=== PATIENT | male | born 1970 | race Hispanic/Latino ===

== ENCOUNTER 2016-06-07 11:21 | Emergency (ER) | payer MEDICARE ==
[2016-06-07 11:48] VITALS: BP 109/75
[2016-06-07 12:20] LABS: Bilirubin,Urine NEG (Negative); Blood,Urine NEG (Negative); Ketones,Urine NEG (Negative); Leukocyte Esterase,Urine NEG (Negative); Nitrite,Urine NEG (Negative); Protein,Urine <15 mg/dL mg/dL (Negative); RBC,Urine < 1.0 /HPF (0.0-6.0); Urobilinogen,Urine < 2.0 mg/dL (<2.0); WBC,Urine < 1.0 /HPF (0.0-6.0)
[2016-06-07 12:28] LABS: Basophils % (Auto) 0.4 % (0.0-1.8); Eosinophils % (Auto) 3.1 % (0.0-4.3); Hematocrit 40.9 % (35.5-45.6); Hemoglobin 13.6 gm/dl (11.8-15.2); Mean Corpuscular HGB Conc 33 % (32-34); Mean Corpuscular Hemoglobin 31 pg (28-32); Mean Corpuscular Volume 92 fl (84-94); Platelet Count 208 K/mm3 (140-440); Red Blood Count 4.45 M/mm3 (3.65-5.03); Red Cell Distribution Width 13.7 % (13.2-15.2); White Blood Count 12.4 K/mm3 (4.5-11.0)
--- NOTE | 2016-06-07 12:33 | XRay Report ---
ROUTINE CHEST, TWO VIEWS: HISTORY: Shortness of breath. The trachea, heart, mediastinal contour, lung dailey and bony thorax are unremarkable. IMPRESSION: No acute cardiopulmonary process.
[2016-06-07 13:02] LABS: Anion Gap 15 mmol/L; BUN/Creatinine Ratio 8.75; Blood Urea Nitrogen 7 mg/dL (9-20); Calcium 8.8 mg/dL (8.4-10.2); Carbon Dioxide 28 mmol/L (22-30); Chloride 101.3 mmol/L (98-107); Glucose 87 mg/dL (75-100); Sodium 140 mmol/L (137-145)
== END 2016-06-07 20:03 | disposition left against medical advice (07) ==
LOC: ED 11:21
DX: M54.9 Dorsalgia, unspecified (principal); R60.0 Localized edema; G89.29 Other chronic pain; Z53.21 Procedure and treatment not carried out due to patient leaving prior to being seen by health care provider
CPT/HCPCS: 36415; 71020; 80048; 81001; 83880; 84484; 85025; 93005; 93010

== ENCOUNTER 2017-05-11 19:50 | Observation (INO) | payer MEDICARE ==
[2017-05-11] MEDS ORDERED: ASPIRIN PO ONE (20:16)
[2017-05-11] MEDS ORDERED: NACL 0.9% 500 ML 500 ML IV ONE ×2 (20:28→21:30)
--- NOTE | 2017-05-11 20:34 | Emergency Department Report ---
ED Chest Pain HPI - General Chief Complaint: Chest Pain Stated Complaint: CHEST PAIN Time Seen by Provider: 05/11/17 20:19 Source: patient, EMS Mode of arrival: Stretcher Limitations: No Limitations - History of Present Illness Initial Comments: 46-year-old male with a past medical history of arthritis, depression, anxiety, and seizures presents to the hospital with complaints of chest pain started about 6:30 PM. Symptoms occurred at rest. He has a moderate left-sided chest tightness and pressure. Positive associated diaphoresis and shortness of breath. He denies nausea or vomiting. Chest pain has been intermittent since onset. Patient smokes cigarettes and has a significant family history for CAD. He denies drug use, alcohol use, previous stress test, calf tenderness, or edema. PMD: Dr. Cordova Severity scale (0 -10): 0 - Related Data Previous Rx's Medication Instructions Recorded Last Taken Type Methocarbamol [Robaxin TAB] 750 mg PO Q8H PRN #30 tablet 01/04/14 Unknown Rx Naproxen Sodium (Nf) [Anaprox DS 550 mg PO BID PRN #30 tablet 01/04/14 Unknown Rx TAB] Cetirizine HCl [ZyrTEC] 10 mg PO DAILY #20 capsule 10/23/15 Unknown Rx Clindamycin [Clindamycin CAP] 300 mg PO Q8H #40 cap 10/23/15 Unknown Rx Ondansetron [Zofran TAB] 4 mg PO Q8HR PRN #20 tablet 10/23/15 Unknown Rx Allergies Allergy/AdvReac Type Severity Reaction Status Date / Time Sulfa (Sulfonamide Allergy Anaphylaxis Verified 09/27/13 16:17 Antibiotics) Heart Score - HEART Score History: Moderately suspicious EKG: Normal Age: 45-65 Risk factors: 1-2 risk factors Troponin: < normal limit HEART Score: 3 ED Review of Systems ROS: Stated complaint: CHEST PAIN Other details as noted in HPI Comment: All other systems reviewed and negative Other: Constitutional: No fevers chills Eyes: No eye pain visual changes ENT: No ear pain or throat pain Neck: Denies pain Respiratory: Denies cough wheezing Cardiovascular: As per HPI GI: Denies abdominal pain, nausea, vomiting, diarrhea : Denies dysuria Musculoskeletal: Denies back pain Skin: Denies rash, lesions, erythema Neurologic: Denies headache, numbness, weakness Psychiatric: Denies suicidal ideation, hallucinations ED Past Medical Hx - Past Medical History Previous Medical History?: Yes Hx Arthritis: Yes Hx Seizures: Yes Hx Psychiatric Treatment: Yes (Depression, anxiety) Additional medical history: Epilepsy, Back problems - Surgical History Past Surgical History?: Yes Hx Appendectomy: Yes - Social History Smoking Status: Current Every Day Smoker Substance Use Type: None - Medications Home Medications: Home Medications Medication Instructions Recorded Confirmed Last Taken Type Methocarbamol [Robaxin TAB] 750 mg PO Q8H PRN #30 tablet 01/04/14 Unknown Rx Naproxen Sodium (Nf) [Anaprox DS 550 mg PO BID PRN #30 tablet 01/04/14 Unknown Rx TAB] Cetirizine HCl [ZyrTEC] 10 mg PO DAILY #20 capsule 10/23/15 Unknown Rx Clindamycin [Clindamycin CAP] 300 mg PO Q8H #40 cap 10/23/15 Unknown Rx Ondansetron [Zofran TAB] 4 mg PO Q8HR PRN #20 tablet 10/23/15 Unknown Rx ED Physical Exam - General Limitations: No Limitations - Other Other exam information: General: No limitations, patient is alert in no acute distress Head exam: Atraumatic, normocephalic Eyes exam: Normal appearance ENT: Moist mucous membrane, normal oropharynx Neck exam: Normal inspection, full range of motion, no meningismus nontender Respiratory exam: Clear to auscultation bilateral, no wheezes, rales, crackles Cardiovascular: Normal rate and rhythm, normal heart sounds. Chest wall nontender Abdomen: Soft, nondistended, and nontender, with normal bowel sounds, no rebound, or guarding Extremity: Full range of motion normal inspection no deformity, no calf tenderness or edema Back: Normal Inspection, full range of motion, no tenderness Neurologic: Alert, oriented x3, cranial nerves intact, no motor or sensory deficit Psychiatric: normal affect, normal mood Skin: Warm, dry, intact ED Course Vital Signs 05/11/17 05/11/17 05/11/17 20:00 20:08 21:11 Temperature 98.8 F 98.8 F Pulse Rate 54 L 54 L Respiratory 17 17 17 Rate Blood Pressure 93/48 Blood Pressure 93/48 [Left] O2 Sat by Pulse 98 97 98 Oximetry ED Medical Decision Making - Lab Data Result diagrams: 05/11/17 20:28 05/11/17 20:28 Lab Results 05/11/17 05/11/17 05/11/17 Range/Units 20:27 20:27 20:28 WBC 8.9 (4.5-11.0) K/mm3 RBC 4.33 (3.65-5.03) M/mm3 Hgb 13.9 (11.8-15.2) gm/dl Hct 40.2 (35.5-45.6) % MCV 93 (84-94) fl MCH 32 (28-32) pg MCHC 35 H (32-34) % RDW 13.7 (13.2-15.2) % Plt Count 175 (140-440) K/mm3 Lymph % (Auto) 48.9 H (13.4-35.0) % [place] % (Auto) 12.1 H (0.0-7.3) % Eos % (Auto) 2.8 (0.0-4.3) % Baso % (Auto) 0.9 (0.0-1.8) % Lymph # 4.4 (1.2-5.4) K/mm3 [place] # 1.1 H (0.0-0.8) K/mm3 Eos # 0.3 (0.0-0.4) K/mm3 Baso # 0.1 (0.0-0.1) K/mm3 Seg Neutrophils % 35.3 L (40.0-70.0) % Seg Neutrophils # 3.2 (1.8-7.7) K/mm3 PT 12.9 (12.2-14.9) Sec. INR 0.93 (0.87-1.13) Sodium (137-145) mmol/L Potassium (3.6-5.0) mmol/L Chloride (98-107) mmol/L Carbon Dioxide (22-30) mmol/L Anion Gap mmol/L BUN (9-20) mg/dL Creatinine (0.8-1.5) mg/dL Estimated GFR ml/min BUN/Creatinine Ratio % Glucose (75-100) mg/dL Calcium (8.4-10.2) mg/dL Troponin T (0.00-0.029) ng/mL Triglycerides 162 H (2-149) mg/dL Cholesterol 113 (50-199) mg/dL LDL Cholesterol Direct 50 (50-130) mg/dL HDL Cholesterol 31 L (40-59) mg/dL Cholesterol/HDL Ratio 3.64 % 05/11/17 Range/Units 20:28 WBC (4.5-11.0) K/mm3 RBC (3.65-5.03) M/mm3 Hgb (11.8-15.2) gm/dl Hct (35.5-45.6) % MCV (84-94) fl MCH (28-32) pg MCHC (32-34) % RDW (13.2-15.2) % Plt Count (140-440) K/mm3 Lymph % (Auto) (13.4-35.0) % [place] % (Auto) (0.0-7.3) % Eos % (Auto) (0.0-4.3) % Baso % (Auto) (0.0-1.8) % Lymph # (1.2-5.4) K/mm3 [place] # (0.0-0.8) K/mm3 Eos # (0.0-0.4) K/mm3 Baso # (0.0-0.1) K/mm3 Seg Neutrophils % (40.0-70.0) % Seg Neutrophils # (1.8-7.7) K/mm3 PT (12.2-14.9) Sec. INR (0.87-1.13) Sodium 139 (137-145) mmol/L Potassium 4.2 (3.6-5.0) mmol/L Chloride 104.1 (98-107) mmol/L Carbon Dioxide 28 (22-30) mmol/L Anion Gap 11 mmol/L BUN 9 (9-20) mg/dL Creatinine 0.9 (0.8-1.5) mg/dL Estimated GFR > 60 ml/min BUN/Creatinine Ratio 10 % Glucose 99 (75-100) mg/dL Calcium 8.1 L (8.4-10.2) mg/dL Troponin T < 0.010 (0.00-0.029) ng/mL Triglycerides (2-149) mg/dL Cholesterol (50-199) mg/dL LDL Cholesterol Direct (50-130) mg/dL HDL Cholesterol (40-59) mg/dL Cholesterol/HDL Ratio % - EKG Data -: EKG Interpreted by Mt EKG shows normal: sinus rhythm, axis (QRS 40), QRS complexes (102), ST-T waves ( early re-pole) Rate: bradycardia (51) - EKG Data When compared to previous EKG there are: no significant change - Radiology Data Radiology results: report reviewed read by radiologist cxr: No acute findings - Medical Decision Making cp will admit for stress test/repeat enzymes no stemi ASA given in ed pain decreasing pt has asymptomatic hypotension and bradycardia cause unclear at this time IVF in progress - Differential Diagnosis IL, atypical pain, unstable angina, costochondritis, PE Critical Care Time: No Critical care attestation.: If time is entered above; I have spent that time in minutes in the direct care of this critically ill patient, excluding procedure time. ED Disposition Clinical Impression: Chest pain, Smoker Disposition: OP ADMIT IP TO THIS HOSP Is pt being admited?: Yes Condition: Stable Time of Disposition: 21:20 (Dr Garcia/hosp)
[2017-05-11 20:38] LABS: Basophils # (Auto) 0.1 K/mm3 (0.0-0.1); Basophils % (Auto) 0.9 % (0.0-1.8); Eosinophils # (Auto) 0.3 K/mm3 (0.0-0.4); Eosinophils % (Auto) 2.8 % (0.0-4.3); Hematocrit 40.2 % (35.5-45.6); Hemoglobin 13.9 gm/dl (11.8-15.2); Lymphocytes # (Auto) 4.4 K/mm3 (1.2-5.4); Lymphocytes % (Auto) 48.9 % (13.4-35.0); Mean Corpuscular HGB Conc 35 % (32-34); Mean Corpuscular Hemoglobin 32 pg (28-32); Mean Corpuscular Volume 93 fl (84-94); Monocytes # (Auto) 1.1 K/mm3 (0.0-0.8); Monocytes % (Auto) 12.1 % (0.0-7.3); Platelet Count 175 K/mm3 (140-440); Red Blood Count 4.33 M/mm3 (3.65-5.03); Red Cell Distribution Width 13.7 % (13.2-15.2)
[2017-05-11 20:52] LABS: INR 0.93 (0.87-1.13)
[2017-05-11 21:00] LABS: BUN/Creatinine Ratio 10; Blood Urea Nitrogen 9 mg/dL (9-20); Calcium 8.1 mg/dL (8.4-10.2); Hemolysis Index 8
[2017-05-11 21:04] LABS: Chol/HDL Ratio 3.64 %
--- NOTE | 2017-05-11 22:03 | XRay Report ---
FINAL REPORT PROCEDURE: Chest. TECHNIQUE: AP and lateral views. HISTORY: Chest pain. COMPARISON: No prior studies are available for comparison. FINDINGS: The heart and mediastinum appear normal. The lungs are clear and well expanded. There are no pleural effusions. The soft tissues and regional skeleton are unremarkable. IMPRESSION: No evidence of acute disease.
[2017-05-11] MEDS ORDERED: HABITROL TD ONE (22:25)
[2017-05-11] MEDS ORDERED: DULCOLAX PR PRN (22:26)
[2017-05-11] MEDS ORDERED: MILK OF MAGNESIA PO PRN (22:26)
[2017-05-11] MEDS ORDERED: ZOFRAN IV PRN (22:26)
[2017-05-11] MEDS ORDERED: TYLENOL PO PRN (22:26)
--- NOTE | 2017-05-11 22:28 | History and Physical Report ---
History of Present Illness Date of examination: 05/11/17 History of present illness: 46-year-old man with a history of anxiety, depression, seizure was brought to the emergency room with complaints of chest pain in the left substernal chest which he describes a tightness, constant, intensity 6/10, no radiation, cannot identify exacerbating or relieving factors. He denies nausea vomiting, palpitation. Admits to diaphoresis, shortness of breath. Review Of Systems: Constitutional: no weight loss Ears, eyes, nose, mouth and throat: no nasal congestion, no nasal discharge, no sinus pressure, blurry vision, diplopia Neck: No neck pain or rigidity. Cardiovascular: orthopnea, palpitations Respiratory: No cough Gastrointestinal: abdominal pain, hematochezia Genitourinary : no dysuria, frequency , hematuria Musculoskeletal: no muscle ache Integumentary: no rash, no pruritis Neurological: no parathesias, focal weakness Endocrine: no cold or heat intolerance, no polyuria or polydipsia Hematologic/Lymphatic: no easy bruising, no easy bleeding, no gland swelling Allergic/Immunologic: no urticaria, no angioedema. PAST MEDICAL HISTORY:anxiety, deprerssion, seizure PAST SURGICAL HISTORY: appendectomy FAMILY HISTORY: Hypertension SOCIAL HISTORY: Denies alcohol, drugs, smoke 1/2 pack a day Medications and Allergies Allergies Allergy/AdvReac Type Severity Reaction Status Date / Time Sulfa (Sulfonamide Allergy Anaphylaxis Verified 09/27/13 16:17 Antibiotics) Home Medications Medication Instructions Recorded Confirmed Last Taken Type Methocarbamol [Robaxin TAB] 750 mg PO Q8H PRN #30 tablet 01/04/14 Unknown Rx Naproxen Sodium (Nf) [Anaprox DS 550 mg PO BID PRN #30 tablet 01/04/14 Unknown Rx TAB] Cetirizine HCl [ZyrTEC] 10 mg PO DAILY #20 capsule 10/23/15 Unknown Rx Clindamycin [Clindamycin CAP] 300 mg PO Q8H #40 cap 10/23/15 Unknown Rx Ondansetron [Zofran TAB] 4 mg PO Q8HR PRN #20 tablet 10/23/15 Unknown Rx Active Meds: Active Medications Nicotine (Habitrol) 21 mg TD ONCE ONE Stop: 05/11/17 22:26 Exam - Physical Exam Narrative exam: Gen. appearance: Patient lying in bed in no acute distress HEENT: Normocephalic/atraumatic, pupils equal round reactive to light, extra alkaline movement intact, no scleral icterus, no JVD or thyromegaly or nodule, neck is supple, mucous membrane moist, no erythema or exudate Heart: S1-S2, regular rate and rhythm Lungs: CTA bilateral breathing comfortable Abdomen: Positive bowel sounds, nontender, nondistended, no organomegaly Extremities: No edema, cyanosis, clubbing Neuro:: Oriented 3 , cranial nerves II-12 intact, speech, motor intact Skin: No rash, nodules, warm dry - Constitutional Vitals: Temp Pulse Resp BP Pulse Ox 98.8 F 54 L 17 93/48 98 05/11/17 20:08 05/11/17 20:08 05/11/17 21:11 05/11/17 20:08 05/11/17 21:11 Results - Labs CBC & Chem 7: 05/12/17 05:10 05/11/17 20:28 Labs: Abnormal lab results 05/11/17 05/11/17 05/11/17 Range/Units 20:27 20:28 20:28 MCHC 35 H (32-34) % Lymph % (Auto) 48.9 H (13.4-35.0) % [place] % (Auto) 12.1 H (0.0-7.3) % [place] # 1.1 H (0.0-0.8) K/mm3 Seg Neutrophils % 35.3 L (40.0-70.0) % Calcium 8.1 L (8.4-10.2) mg/dL Triglycerides 162 H (2-149) mg/dL HDL Cholesterol 31 L (40-59) mg/dL - Imaging and Cardiology EKG: image reviewed Chest x-ray: image reviewed Assessment and Plan Assessment Chest Pain Anxiety Depression Seizure Plan Admit to medicine Check cardiac enzymes, stress test start percocet, DVT prophalaxis Continue outpatient medications
[2017-05-11] MEDS ORDERED: ATIVAN IV PRN (22:45)
[2017-05-11] MEDS ORDERED: NACL 0.9% 1000 ML 1,000 ML IV SCH (23:00)
[2017-05-11] MEDS ORDERED: PERCOCET 5/325 ONE (23:15)
[2017-05-11] MEDS: PERCOCET 5/325 PO PRN (23:19)
[2017-05-12 00:29] LABS: Creatine Kinase MB 1.4 ng/mL (0.0-4.0)
[2017-05-12 05:56] LABS: Basophils # (Auto) 0.1 K/mm3 (0.0-0.1); Basophils % (Auto) 0.6 % (0.0-1.8); Eosinophils # (Auto) 0.2 K/mm3 (0.0-0.4); Eosinophils % (Auto) 2.5 % (0.0-4.3); Hematocrit 40.4 % (35.5-45.6); Hemoglobin 13.6 gm/dl (11.8-15.2); Lymphocytes # (Auto) 4.1 K/mm3 (1.2-5.4); Lymphocytes % (Auto) 45.3 % (13.4-35.0); Mean Corpuscular HGB Conc 34 % (32-34); Mean Corpuscular Hemoglobin 32 pg (28-32); Mean Corpuscular Volume 94 fl (84-94); Monocytes # (Auto) 0.9 K/mm3 (0.0-0.8); Monocytes % (Auto) 10.2 % (0.0-7.3); Platelet Count 167 K/mm3 (140-440); Red Blood Count 4.31 M/mm3 (3.65-5.03); Red Cell Distribution Width 13.5 % (13.2-15.2)
[2017-05-12 06:18] LABS: Creatine Kinase MB 1.3 ng/mL (0.0-4.0)
[2017-05-12 06:21] LABS: BUN/Creatinine Ratio 13; Blood Urea Nitrogen 10 mg/dL (9-20); Calcium 7.8 mg/dL (8.4-10.2); Hemolysis Index 4
[2017-05-12] MEDS ORDERED: LOVENOX SUB-Q SCH (10:00)
[2017-05-12] MEDS ORDERED: DOBUTAMINE Stress 100 MG in D5W 75 ML IV SCH (11:00)
[2017-05-12] MEDS: LOVENOX SUB-Q SCH (12:44)
[2017-05-12] MEDS ORDERED: ACETAMINOPHEN PO SCH (12:45)
[2017-05-12] MEDS: PROTONIX PO SCH (12:45)
[2017-05-12] MEDS ORDERED: NON-FORMULARY (Tizanidine Hcl [Zanaflex] 4 MG) PO SCH (12:45)
[2017-05-12] MEDS ORDERED: HYDROCODONE PO SCH (12:45)
[2017-05-12] MEDS ORDERED: NORCO 7.5/325 PO PRN (12:48)
--- NOTE | 2017-05-12 13:31 | Consultation ---
History of Present Illness Consult date: 05/12/17 Requesting physician: LUÍS SAMANO Consult reason: bradycardia, chest pain History of present illness: The patient is a 46 year old male with a history of chronic back pain, grand mal seizures, depression, anxiety, tobacco abuse who presented with complaints of intermittent substernal chest pain with radiation to his left arm that started yesterday evening while at rest. Described as tightness and pressure. Associated with shortness of breath and diaphoresis. Denies nausea or vomiting. Troponin negative x 4. BNP 855. CXR unremarkable. Echo showed EF 50-55%. Stress test was ordered for this morning but patient is unable to walk due to chronic back pain. Lexiscan contraindicated due to h/o grand mal seizures. Dobutamine stress test attempted but BP got too high before adequate HR achieved. Both mother and father with a history of CAD. Past History Past Medical History: arthritis, seizures, other (chronic back pain, depression , anxiety) Past Surgical History: appendectomy Social history: smoking. denies: alcohol abuse, prescription drug abuse, IV drug use Family history: CAD (mother and father) Medications and Allergies Allergies Allergy/AdvReac Type Severity Reaction Status Date / Time Sulfa (Sulfonamide Allergy Anaphylaxis Verified 09/27/13 16:17 Antibiotics) Home Medications Medication Instructions Recorded Confirmed Last Taken Type Diazepam [Valium] 5 mg PO BID 05/12/17 05/12/17 Unknown History Hydrocodon-Acetamin 7.5-325/15 7.5 mg PO PRN 05/12/17 05/12/17 Unknown History Tizanidine HCl [Zanaflex] 4 mg PO DAILY 05/12/17 05/12/17 Unknown History levETIRAcetam [Keppra] 750 mg PO BID 05/12/17 05/12/17 Unknown History Active Meds: Active Medications Acetaminophen (Tylenol) 650 mg PO Q4H PRN PRN Reason: Pain MILD(1-3)/Fever >100.5/WETZEL Acetaminophen/Hydrocodone Bitart ([place] 7.5/325) 1 each PO Q4H PRN PRN Reason: Pain, Moderate (4-6) Bisacodyl (Dulcolax) 10 mg [place] QDAY PRN PRN Reason: Constipation unrelieved by MOM Diazepam (Valium) 5 mg PO BID SARAH Enoxaparin Sodium (Lovenox) 40 mg SUB-Q QDAY@1000 [facility] Last Admin: 05/12/17 12:44 Dose: 40 mg Sodium Chloride (Nacl 0.9% 1000 Ml) 1,000 mls @ 100 mls/hr IV DIRECT [facility] Levetiracetam (Keppra) 750 mg PO BID [facility] Lorazepam (Ativan) 1 mg IV Q4H PRN PRN Reason: Seizures Magnesium Hydroxide (Milk Of Magnesia) 30 ml PO Q4H PRN PRN Reason: Constipation Ondansetron HCl (Zofran) 4 mg IV Q8H PRN PRN Reason: N/V unrelieved by Reglan Oxycodone/Acetaminophen (Percocet 5/325) 1 tab PO Q4H PRN PRN Reason: Pain, Moderate (4-6) Last Admin: 05/11/17 23:19 Dose: 1 tab Pantoprazole Sodium (Protonix) 40 mg PO QDAY [facility] Last Admin: 05/12/17 12:45 Dose: 40 mg Tizanidine HCl (Zanaflex) 4 mg PO QDAY [facility] Review of Systems Constitutional: no fever, no chills Ears, nose, mouth and throat: no nasal congestion, no nasal discharge, no sinus pressure Cardiovascular: chest pain, shortness of breath, no palpitations Respiratory: shortness of breath, no cough, no congestion, no wheezing Gastrointestinal: no abdominal pain, no nausea, no vomiting, no diarrhea Genitourinary Male: no dysuria, no hematuria Musculoskeletal: no neck stiffness, no neck pain, no myalgias Integumentary: no rash, no pruritis Neurological: no parathesias, no numbness, no tingling, no headaches Endocrine: no cold intolerance, no heat intolerance Hematologic/Lymphatic: no easy bruising, no easy bleeding Allergic/Immunologic: no urticaria, no wheezing Physical Examination Vital Signs Temp Pulse Resp BP Pulse Ox 98.8 F 54 L 17 93/48 98 05/11/17 20:00 05/11/17 20:00 05/11/17 20:00 05/11/17 20:00 05/11/17 20:00 General appearance: no acute distress HEENT: Positive: Normocephaly, Mucus Membranes Moist Neck: Positive: neck supple, trachea midline Cardiac: Positive: Reg Rate and Rhythm, S1/S2 Lungs: Positive: clear to auscultation Neuro: Positive: Grossly Intact Abdomen: Positive: Soft, Active Bowel Sounds. Negative: Tender Skin: Positive: Clear. Negative: Rash Extremities: Present: normal. Absent: edema Results 05/12/17 05:10 05/12/17 05:10 Cardiac Enzymes 05/11/17 05/12/17 Range/Units 23:42 05:10 CK-MB (CK-2) 1.4 1.3 (0.0-4.0) ng/mL Coagulation 05/11/17 Range/Units 20:27 PT 12.9 (12.2-14.9) Sec. INR 0.93 (0.87-1.13) Lipids 05/11/17 Range/Units 20:27 Triglycerides 162 H (2-149) mg/dL Cholesterol 113 (50-199) mg/dL HDL Cholesterol 31 L (40-59) mg/dL Cholesterol/HDL Ratio 3.64 % CBC 05/11/17 05/12/17 Range/Units 20:28 05:10 WBC 8.9 9.0 (4.5-11.0) K/mm3 RBC 4.33 4.31 (3.65-5.03) M/mm3 Hgb 13.9 13.6 (11.8-15.2) gm/dl Hct 40.2 40.4 (35.5-45.6) % Plt Count 175 167 (140-440) K/mm3 Lymph # 4.4 4.1 (1.2-5.4) K/mm3 [place] # 1.1 H 0.9 H (0.0-0.8) K/mm3 Eos # 0.3 0.2 (0.0-0.4) K/mm3 Baso # 0.1 0.1 (0.0-0.1) K/mm3 Comprehensive Metabolic Panel 05/11/17 05/12/17 Range/Units 20:28 05:10 Sodium 139 144 (137-145) mmol/L Potassium 4.2 4.8 (3.6-5.0) mmol/L Chloride 104.1 104.5 (98-107) mmol/L Carbon Dioxide 28 28 (22-30) mmol/L BUN 9 10 (9-20) mg/dL Creatinine 0.9 0.8 (0.8-1.5) mg/dL Glucose 99 91 (75-100) mg/dL Calcium 8.1 L 7.8 L (8.4-10.2) mg/dL - Imaging and Cardiology Echo: report reviewed (Echo: EF 50-55%) EKG: image reviewed EKG interpretations - Telemetry EKG Rhythm: Sinus Rhythm - EKG Sinus rhythms and dysrhythmias: sinus bradycardia Assessment and Plan Assessment: Chest pain Troponin negative x 4 No acute EKG changes Echo: EF 50-55% [facility] in am for definitive diagnosis Asymptomatic sinus bradycardia Avoid AV niko blocking agents Check TSH/free T4 Continue to observe on the monitor Chronic back pain Depression Anxiety H/o grand mal seizures Tobacco abuse Family h/o CAD Plan: Stress test was ordered for this morning but patient is unable to walk due to chronic back pain. Lexiscan contraindicated due to h/o grand mal seizures. Dobutamine stress test attempted but BP got too high before adequate HR achieved. Given continued chest pain, will proceed with [facility] in am for definitive diagnosis. Risks, benefits and alternatives were discussed with the patient and he agrees to proceed. The patient has been seen in conjunction with Dr. Richmond who agrees with the assessment and plan of care.
[2017-05-12] MEDS: VALIUM PO SCH ×2 (14:19→22:22)
[2017-05-12] MEDS: KEPPRA PO SCH ×2 (14:19→22:21)
--- NOTE | 2017-05-12 15:05 | Progress Note ---
Assessment and Plan // Chest pain - Troponin negative x 4, No acute EKG changes, Echo: EF 50-55% - Stress test was ordered for this morning but patient is unable to walk due to chronic back pain. Lexiscan contraindicated due to h/o grand mal seizures. Dobutamine stress test attempted but BP got too high before adequate HR achieved. Given continued chest pain, cardiology planned for [facility] in am for definitive diagnosis. // Asymptomatic sinus bradycardia - Avoid AV niko blocking agents - Check TSH/free T4 - Continue to observe on the monitor // Chronic back pain - lortab as needed // Depression and anxiety - resume home meds (Valium) // H/o grand mal seizures - cont keppra 750 BID // Tobacco abuse - counselled for cessation General: Diet: cardiac DVT prophylaxis: lovenox GI prophylaxis: PPI Functional status: ambulatory Brief history: 46-year-old man with a history of anxiety, depression, seizure was brought to the emergency room with complaints of chest pain in the left substernal chest Radiological test: cxr - no infiltrates 2d echo - preserved EF Hospitalist Physical exam: GENERAL: well-developed and well-nourished male lying on bed appeared to be in no discomfort. HEENT: Normocephalic. Atraumatic. No conjunctival congestion or icterus. Patient has moist mucous membranes. NECK: Supple. Trachea midline. CHEST/LUNGS: Clear to auscultated bilaterally, breathing nonlabored. No wheezes crackles or rhonchi. HEART/CARDIOVASCULAR: Regular in rate and rhythm. S1 and S2 positive. ABDOMEN: Abdomen is soft, nontender. Patient has normal bowel sounds. SKIN: There is no rash. Warm and dry. NEURO: No focal motor deficit. Follows command. MUSCULOSKELETAL: No joint effusion or tenderness. EXTRIMITY: No edema, no cyanosis or clubbing. PSYCH: Cooperative. Subjective Date of service: 05/12/17 Interval history: Pt seen and examined c/o intermittent chest pain and no chest pain now Discussed with family at bedside Objective - Constitutional Vitals: Vital Signs - 12hr 05/12/17 05/12/17 05/12/17 05:02 06:44 07:46 Temperature 98.1 F 97.9 F Pulse Rate 46 L 51 L Respiratory 20 18 20 Rate Blood Pressure 108/66 95/53 O2 Sat by Pulse 97 98 96 Oximetry 05/12/17 11:46 Temperature 97.8 F Pulse Rate 50 L Respiratory 20 Rate Blood Pressure 130/79 O2 Sat by Pulse 98 Oximetry - Labs CBC & Chem 7: 05/13/17 05:02 05/13/17 05:02 Labs: Abnormal lab results 05/11/17 05/11/17 05/11/17 Range/Units 20:27 20:28 20:28 MCHC 35 H (32-34) % Lymph % (Auto) 48.9 H (13.4-35.0) % [place] % (Auto) 12.1 H (0.0-7.3) % [place] # 1.1 H (0.0-0.8) K/mm3 Seg Neutrophils % 35.3 L (40.0-70.0) % Calcium 8.1 L (8.4-10.2) mg/dL Triglycerides 162 H (2-149) mg/dL HDL Cholesterol 31 L (40-59) mg/dL 05/12/17 05/12/17 Range/Units 05:10 05:10 MCHC (32-34) % Lymph % (Auto) 45.3 H (13.4-35.0) % [place] % (Auto) 10.2 H (0.0-7.3) % [place] # 0.9 H (0.0-0.8) K/mm3 Seg Neutrophils % (40.0-70.0) % Calcium 7.8 L (8.4-10.2) mg/dL Triglycerides (2-149) mg/dL HDL Cholesterol (40-59) mg/dL
[2017-05-12] MEDS: ZANAFLEX PO SCH (15:30)
[2017-05-12] MEDS ORDERED: NACL 0.9% 500 ML 500 ML IV SCH (16:00)
[2017-05-12] MEDS: PERCOCET 5/325 PO PRN (20:22)
[2017-05-13 05:26] LABS: Hematocrit 45.2 % (35.5-45.6); Hemoglobin 15.3 gm/dl (11.8-15.2); Mean Corpuscular HGB Conc 34 % (32-34); Mean Corpuscular Hemoglobin 32 pg (28-32); Mean Corpuscular Volume 93 fl (84-94); Platelet Count 179 K/mm3 (140-440); Red Blood Count 4.84 M/mm3 (3.65-5.03); Red Cell Distribution Width 13.4 % (13.2-15.2)
[2017-05-13 05:41] LABS: INR 0.89 (0.87-1.13); Partial Thromboplastin Time 30.5 Sec. (24.2-36.6)
[2017-05-13 05:42] LABS: BUN/Creatinine Ratio 14; Blood Urea Nitrogen 10 mg/dL (9-20); Calcium 8.6 mg/dL (8.4-10.2); Hemolysis Index 7
[2017-05-13] MEDS: PERCOCET 5/325 PO PRN (05:53)
[2017-05-13 08:04] LABS: Band Neutrophils # (Manual) 0.1 K/mm3; Basophils % (Manual) 0 % (0.0-1.8); Total Cells Counted 100
[2017-05-13 08:05] LABS: RBC Morphology Normal
[2017-05-13] MEDS ORDERED: ECOTRIN PO ONE (08:30)
[2017-05-13] MEDS: HEPARIN 10,000 UNITS/10 ML ONE ×2 (08:39→08:54)
[2017-05-13] MEDS: VERSED ONE ×2 (08:39→08:53)
[2017-05-13] MEDS: CALAN ONE ×2 (08:39→08:54)
[2017-05-13] MEDS: XYLOCAINE 2% INFILTRATI ONE ×2 (08:39→08:53)
[2017-05-13] MEDS: SUBLIMAZE ONE ×2 (08:39→08:53)
[2017-05-13] MEDS: NITROGLYCERIN SYRINGE 3 ML ONE ×2 (08:40→08:54)
[2017-05-13] MEDS: HEPARIN/NS 5000 UNIT/500ML(CATH LAB) 1,000 ML IR ONE ×2 (08:40→08:50)
--- NOTE | 2017-05-13 09:31 | Cardiac Catherization Report ---
CARDIAC CATHETERIZATION REFERRING PHYSICIAN: Mary Garcia MD INDICATION FOR PROCEDURE: The patient is a pleasant 46-year-old gentleman with a strong family history of premature heart disease, admission with chest pain, a nondiagnostic dobutamine stress test, referred for left heart catheterization. Risks, benefits, and potential alternatives explained at length prior to informed consent. PROCEDURE IN DETAIL: The patient was brought to the lab technician in a postabsorptive state, prepped and draped in sterile fashion. Best's test in right hand was normal. A 2 mL of 2% lidocaine used to anesthetize the right wrist. A standard 6-Bengali hydrophilic sheath used to cannulate the right radial artery via modified Seldinger technique. All exchanges performed to exchange a J-tip guidewire. JL3.5 catheter used to engage the left main. No dampening or ventricularization. Cineangiography performed in all projections. JR4 catheter was used to cross the aortic valve under fluoroscopic guidance. Left ventriculography performed in 30 PALMA and 30 MONEGASQUE projections via hand injections, catheter flushed. Manual pullback performed with continuous pressure monitoring. Catheter used to engage the right coronary. No dampening or ventricularization. Cineangiography performed in all projections. Next, due to persistent chest pain, normal coronaries, we chose to proceed with a root aortogram. Pigtail catheter used in the MONEGASQUE projection with a power injector. Root aortogram performed. Catheter removed from the body of wire, sheath removed. Manual pressure used to achieve hemostasis. DATA: Aortic pressure is 130/80, LV pressure is 130, LVEDP of 20 mmHg. Left ventriculography revealed normal left ventricular systolic performance, estimated ejection fraction of 50-55%. No evidence of stenosis. CORONARY ANATOMY: This is a right dominant system. Right coronary is a moderate sized vessel, courses AV groove, distally bifurcates in the posterior descending, posterolateral branches. No discrete stenosis identified. Left main without significant disease, short, bifurcates in left anterior descending and left circumflex. Left circumflex a moderate sized vessel, courses AV groove. No significant disease. LAD is a moderate sized vessel, courses anterior intergroove, wraps around the apex, no significant disease. Root aortography reveals normal contour, likely normal diameter. Normal great vessel anatomy. No evidence of dissection, penetrating aortic ulcer, or aortic insufficiency. CONCLUSIONS: 1. No angiographic evidence of significant epicardial coronary artery disease in this right dominant system. 2. Normal left ventricular systolic performance. 3. No evidence of aortic stenosis. 4. Root aortogram appears grossly normal without evidence of dissection, penetrating aortic ulcer, or aortic insufficiency. 5. High normal LVEDP. At this point, continue medical management, risk factor modification. Results of procedure explained to the patient and family. All questions and concerns were addressed. Standard radial care. ADDENDUM: Moderate sedation was employed, was directly monitored by myself with the administration of Versed and fentanyl. Start time was 08:45, end time 09:15. JOB# [id number] SBM/NTS
--- NOTE | 2017-05-13 10:19 | Treadmill Report ---
DOBUTAMINE STRESS TEST REFERRING PHYSICIAN: Delaney Garcia MD SUPERVISING PHYSICIAN: Amita Richmond MD PROTOCOL: The patient was brought to the stress lab in a postabsorptive state. Unable to perform a treadmill due to history of seizures, Lexiscan was not used and thus a dobutamine stress test was performed. Baseline heart rate was noted to be 50. Normal EKG at baseline. Dobutamine infusion was started per protocol. Eventually, heart rate rebekah to 75 beats per minute, but blood pressure rebekah over 200 systolic and thus the test was stopped prematurely. The patient had no chest pain, arrhythmias, or ST changes. CONCLUSIONS: 1. Nondiagnostic dobutamine stress test due to inability to achieve target heart rate due to elevated blood pressure. 2. No evidence of chest pain, arrhythmia, or diagnostic ST changes during this limited test. Recommend further testing for ischemic workup. [facility]# [id number] SBChance/AN
--- NOTE | 2017-05-13 10:21 | Progress Note ---
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 Currently stable cardiac status. Nothing further to add from cardiac perspective. Pt may discharge home today from cardiology standpoint following completion of post-cath order set. Recommend follow up in our office with Meagan Auguste NP, within 1-2 weeks of hospital discharge ([phone]). The patient has been seen in conjunction with Dr. Richmond who agrees with the assessment and plan of care. Subjective Date of service: 05/13/17 Principal diagnosis: chest pain Interval history: pt for [facility] this AM. no current cardiac complaints. Objective Last Vital Signs Temp 97.7 F 05/13/17 04:52 Pulse 52 L 05/13/17 10:01 Resp 20 05/13/17 04:52 BP 118/79 05/13/17 10:01 Pulse Ox 99 05/13/17 10:01 - Physical Examination General: No Apparent Distress HEENT: Positive: Normocephaly, Mucus Membranes Moist Neck: Positive: neck supple, trachea midline Cardiac: Positive: Regular Rhythm, S1/S2, Bradycardia Lungs: Positive: clear to auscultation Neuro: Positive: Grossly Intact Abdomen: Positive: Soft, Active Bowel Sounds. Negative: Tender Skin: Positive: Clear. Negative: Rash Extremities: Present: normal. Absent: edema - Labs and Meds Coagulation 05/13/17 Range/Units 05:02 PT 12.5 (12.2-14.9) Sec. INR 0.89 (0.87-1.13) APTT 30.5 (24.2-36.6) Sec. CBC 05/13/17 Range/Units 05:02 WBC 7.2 (4.5-11.0) K/mm3 RBC 4.84 (3.65-5.03) M/mm3 Hgb 15.3 H (11.8-15.2) gm/dl Hct 45.2 (35.5-45.6) % Plt Count 179 (140-440) K/mm3 Comprehensive Metabolic Panel 02/22/18 Range/Units 05:02 Sodium 146 H (137-145) mmol/L Potassium 4.9 (3.6-5.0) mmol/L Chloride 107.4 H (98-107) mmol/L Carbon Dioxide 29 (22-30) mmol/L BUN 10 (9-20) mg/dL Creatinine 0.7 L (0.8-1.5) mg/dL Glucose 97 (75-100) mg/dL Calcium 8.6 (8.4-10.2) mg/dL - Imaging and Cardiology EKG: image reviewed Echo: report reviewed (Echo: EF 50-55%) - Telemetry EKG Rhythm: Sinus Bradycardia - EKG Sinus rhythms and dysrhythmias: sinus bradycardia
[2017-05-13] MEDS: LOVENOX SUB-Q SCH (10:43)
[2017-05-13] MEDS: VALIUM PO SCH (10:44)
[2017-05-13] MEDS: PROTONIX PO SCH (10:44)
[2017-05-13] MEDS: ZANAFLEX PO SCH (10:44)
[2017-05-13] MEDS: KEPPRA PO SCH (10:44)
--- NOTE | 2017-05-13 12:07 | Discharge Summary ---
Providers - Providers Date of Admission: 05/11/17 22:26 Date of discharge: 05/13/17 Attending physician: LUÍS SAMANO 05/12/17 07:28 Consult to Physician [CONS] Routine Consulting Provider: VEGA VAIL Reason For Exam: bradycardia Place consult to:: Dr. Vail Notified:: Omayra ROLON Was contact made?: Yes If yes, spoke with:: Meagan Auguste Time called:: 10:49 05/13/17 10:20 Consult to Cardiac Rehabilitation [CONS] Routine Reason For Exam: Cardiac Rehab Evaluation Primary care physician: WILVER CLOUD Hospitalization Condition: Stable Hospital course: Brief history: 46-year-old man with a history of anxiety, depression, seizure was brought to the emergency room with complaints of chest pain in the left substernal chest // Chest pain, likely musculoskeletal - Troponin negative x 4, No acute EKG changes, Echo: EF 50-55% - Stress test was ordered but patient is unable to walk due to chronic back pain. Lexiscan contraindicated due to h/o grand mal seizures. Dobutamine stress test attempted but BP got too high before adequate HR achieved. Given continued chest pain, cardiology planned for [facility] for definitive diagnosis and that showed normal coronaries. He will f/u in the cardiology office in one week. 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 HEENT: Normocephalic. Atraumatic. No conjunctival congestion or icterus. Patient has moist mucous membranes. NECK: Supple. Trachea midline. CHEST/LUNGS: Clear to auscultated bilaterally, breathing nonlabored. No wheezes crackles or rhonchi. HEART/CARDIOVASCULAR: Regular in rate and rhythm. S1 and S2 positive. ABDOMEN: Abdomen is soft, nontender. Patient has normal bowel sounds. SKIN: There is no rash. Warm and dry. NEURO: No focal motor deficit. Follows command. MUSCULOSKELETAL: No joint effusion or tenderness. EXTRIMITY: No edema, no cyanosis or clubbing. PSYCH: Cooperative. Disposition: DC-01 TO HOME OR SELFCARE Time spent for discharge: 32 minutes Core Measure Documentation - Palliative Care Palliative Care/ Comfort Measures: Not Applicable - Core Measures Any of the following diagnoses?: none Exam - Constitutional Vitals: Temp Pulse Resp BP Pulse Ox 97.8 F 51 L 19 114/71 98 05/13/17 11:25 05/13/17 11:25 05/13/17 11:25 05/13/17 11:25 05/13/17 11:25 Plan Activity: advance as tolerated Weight Bearing Status: Weight Bear as Tolerated Diet: low fat, low salt
[2017-05-13 15:01] VITALS: BP 136/86
== END 2017-05-13 15:00 | disposition home or self-care (01) ==
LOC: ED 19:50 → 4A 22:26
PROVIDERS: ADMIT Internal Medicine; ATTEND Internal Medicine
DX: R07.89 Other chest pain (principal); R00.1 Bradycardia, unspecified; F41.9 Anxiety disorder, unspecified; F32.9 Major depressive disorder, single episode, unspecified; R56.9 Unspecified convulsions; M19.90 Unspecified osteoarthritis, unspecified site; F17.210 Nicotine dependence, cigarettes, uncomplicated; Z82.49 Family history of ischemic heart disease and other diseases of the circulatory system
CPT/HCPCS: 36415; 71046; 80048; 80061; 82550; 82553; 82962; 84439; 84443; 84484; 85007; 85025; 85610; 85730; 93005; 93010; 93017; 93306; 93458; 93567; 96365; 96366; 96372; 99285; C1894; G0378; J1250; J1644; J1650; J2250; J3010; J7030; J7040; Q9967

== ENCOUNTER 2020-02-28 11:51 | Emergency (ER) | payer MEDICARE ==
[2020-02-28 12:40] VITALS: BP 152/100
--- NOTE | 2020-02-28 13:55 | XRay Report ---
CHEST 1 VIEW INDICATION / CLINICAL INFORMATION: CP. COMPARISON: 05/11/2017 FINDINGS: SUPPORT DEVICES: None. HEART / MEDIASTINUM: No significant abnormality. LUNGS / PLEURA: No significant pulmonary or pleural abnormality. No pneumothorax. ADDITIONAL FINDINGS: No significant additional findings. IMPRESSION: No acute disease or interval change from 05/11/2017 Signer Name: Gregorio Bower MD FACR Signed: 02/28/2020 1:50 PM Workstation Name: [id number]
--- NOTE | 2020-02-28 14:00 | Emergency Department Report ---
ED Chest Pain HPI - General Chief Complaint: Chest Pain Stated Complaint: CHEST PAIN Time Seen by Provider: 02/28/20 12:45 Source: patient, EMS Mode of arrival: Stretcher Limitations: No Limitations - History of Present Illness Initial Comments: This is a 49-year-old male who presents to the emergency department from home with complaint of some left-sided chest pain with radiation to the left arm and left side of the neck. This has been going on since last night but says it is intermittent. The chest pain is more sharp in nature. The pain to the shoulder and neck feels more like a tingling and numbness sensation. He denies any shortness of breath, nausea, vomiting, fever, diaphoresis. The patient has chronic back pain. He took one of his Lortab, a Tylenol, and a full dose aspirin, this morning without much relief. He is a tobacco smoker but denies any illicit drug use. He also has a history of hypertension and epilepsy. His primary care physician is Dr. Cordova. No recent travel or sick contacts at home. The patient had a cardiac catheterization done here in April 2017 that did not show any coronary artery disease at that time. Severity scale (0 -10): 0 - Related Data Home Medications Medication Instructions Recorded Confirmed Last Taken Diazepam [Valium] 5 mg PO BID 05/12/17 05/12/17 Unknown Hydrocodon-Acetamin 7.5-325/15 7.5 mg PO PRN 05/12/17 05/12/17 Unknown Tizanidine HCl [Zanaflex 4mg CAP] 4 mg PO DAILY 05/12/17 05/12/17 Unknown levETIRAcetam [Keppra] 750 mg PO BID 05/12/17 05/12/17 Unknown Allergies Allergy/AdvReac Type Severity Reaction Status Date / Time Sulfa (Sulfonamide Allergy Anaphylaxis Verified 09/27/13 16:17 Antibiotics) Heart Score - HEART Score History: Slightly suspicious EKG: Normal Age: 45-65 Risk factors: 1-2 risk factors Troponin: < normal limit HEART Score: 2 - Critical Actions Critical Actions: 0-3 pts:0.9-1.7%risk of adverse cardiac event.Candidate for discharge ED Review of Systems ROS: Stated complaint: CHEST PAIN Other details as noted in HPI Comment: All other systems reviewed and negative Constitutional: denies: chills, fever Eyes: denies: eye pain, vision change ENT: denies: ear pain, throat pain Respiratory: denies: cough, shortness of breath Cardiovascular: chest pain. denies: palpitations Gastrointestinal: denies: abdominal pain, vomiting Genitourinary: denies: dysuria, discharge Musculoskeletal: back pain (Chronic), arthralgia Skin: denies: rash, lesions Neurological: numbness, paresthesias (Left arm and neck). denies: headache ED Past Medical Hx - Past Medical History Hx Hypertension: Yes Hx Arthritis: Yes Hx Seizures: Yes Hx Psychiatric Treatment: Yes (Depression, anxiety) Hx Asthma: No Additional medical history: Epilepsy, Back problems - Surgical History Hx Appendectomy: Yes - Social History Smoking Status: Current Every Day Smoker - Medications Home Medications: Home Medications Medication Instructions Recorded Confirmed Last Taken Type Diazepam [Valium] 5 mg PO BID 05/12/17 05/12/17 Unknown History Hydrocodon-Acetamin 7.5-325/15 7.5 mg PO PRN 05/12/17 05/12/17 Unknown History Tizanidine HCl [Zanaflex 4mg CAP] 4 mg PO DAILY 05/12/17 05/12/17 Unknown Hi story levETIRAcetam [Keppra] 750 mg PO BID 05/12/17 05/12/17 Unknown History ED Physical Exam - General Limitations: No Limitations - Other Other exam information: GENERAL: The patient is well-developed well-nourished. HENT: Normocephalic. Atraumatic. Patient has moist mucous membranes. EYES: Extraocular motions are intact. NECK: Supple. Trachea is midline. CHEST/LUNGS: Clear to auscultation. There is no respiratory distress noted. There is some reproducible left-sided chest pain to palpation. No crepitus or deformity. HEART/CARDIOVASCULAR: Regular. There is no tachycardia. There is no murmur. ABDOMEN: Abdomen is soft, nontender. Patient has normal bowel sounds. SKIN: Skin is warm and dry. NEURO: The patient is awake, alert, and oriented. The patient is cooperative. The patient has no focal neurologic deficits. Normal speech. MUSCULOSKELETAL: There is no tenderness or deformity. Left radial pulse +2/4 and capillary refill less than 2 seconds. ED Course Vital Signs 02/28/20 02/28/20 12:28 14:11 Pulse Rate 84 92 H Respiratory 18 Rate Blood Pressure 152/100 Blood Pressure 150/100 [Left] O2 Sat by Pulse 98 Oximetry - Reevaluation(s) Reevaluation #1: 02/28/20 14:56 Lab Results 02/28/20 02/28/20 Range/Units 14:12 14:12 WBC 8.2 (4.5-11.0) K/mm3 RBC 4.40 (3.65-5.03) M/mm3 Hgb 14.7 (11.8-15.2) gm/dl Hct 41.9 (35.5-45.6) % MCV 95 H (84-94) fl MCH 34 H (28-32) pg MCHC 35 H (32-34) % RDW 14.3 (13.2-15.2) % Plt Count 207 (140-440) K/mm3 Lymph % (Auto) 37.1 H (13.4-35.0) % Ocean % (Auto) 8.1 H (0.0-7.3) % Eos % (Auto) 3.0 (0.0-4.3) % Baso % (Auto) 0.4 (0.0-1.8) % Lymph # (Auto) 3.0 (1.2-5.4) K/mm3 Ocean # (Auto) 0.7 (0.0-0.8) K/mm3 Eos # (Auto) 0.2 (0.0-0.4) K/mm3 Baso # (Auto) 0.0 (0.0-0.1) K/mm3 Seg Neutrophils % 51.4 (40.0-70.0) % Seg Neutrophils # 4.2 (1.8-7.7) K/mm3 Sodium 139 (137-145) mmol/L Potassium 3.9 (3.6-5.0) mmol/L Chloride 103.6 (98-107) mmol/L Carbon Dioxide 27 (22-30) mmol/L Anion Gap 12 mmol/L BUN 11 (9-20) mg/dL Creatinine 0.8 (0.8-1.3) mg/dL Estimated GFR > 60 ml/min BUN/Creatinine Ratio 14 % Glucose 95 (75-100) mg/dL Calcium 9.7 (8.4-10.2) mg/dL Troponin T < 0.010 (0.00-0.029) ng/mL KAY score - Kay Score Age > 65: (0) No Aspirin use within the Past 7 Days: (0) No 3 or more CAD Risk Factors: (0) No 2 or more Angina events in past 24 hrs: (1) Yes Known CAD with more than 50% Stenosis: (0) No Elevated Cardiac Markers: (0) No ST Deviation Greater than 0.5mm: (0) No KAY Score: 1 ED Medical Decision Making - Lab Data Result diagrams: 02/28/20 14:12 02/28/20 14:12 - EKG Data -: EKG Interpreted by Me EKG shows normal: sinus rhythm, axis, intervals, QRS complexes, ST-T waves Rate: normal - EKG Data When compared to previous EKG there are: no significant change Interpretation: unchanged when compared t (05/15/17) - Radiology Data Radiology results: image reviewed interpreted by me: Chest x-ray does not show any acute process. There are no pleural effusions, obvious pneumonia and there is no pneumothorax. No significant cardiomegaly. - Medical Decision Making This patient presents to the emergency department with a complaint of some intermittent left-sided chest pain with radiation to the left shoulder and left neck. EKG does not have any morphology consistent ST elevation myocardial infarction. Chest x-ray does not show any pneumonia, pleural effusions, pneumothorax, or any other acute process. Shortly after the patient's labs were drawn, but before they returned, the patient decided he wanted to leave the emergency department. He said that he felt that nothing was being done for him. However, this occurred shortly after my initial examination. We discussed with the patient the fact that leaving at this time could be detrimental and need to further chest pain, heart attack, disability or even as the evaluation has not been completed. The patient is awake, alert, oriented, and has normal decision-making capacity. Therefore, despite understanding the risks, he has still decided to leave AGAINST MEDICAL ADVICE. The patient understands that he can return to the emergency department at any point for reevaluation or with any acute distress. Critical Care Time: No Critical care attestation.: If time is entered above; I have spent that time in minutes in the direct care of this critically ill patient, excluding procedure time. ED Disposition Clinical Impression: Chest pain Qualifiers: Chest pain type: unspecified Qualified Code(s): R07.9 - Chest pain, unspecified Hypertension Qualifiers: Hypertension type: essential hypertension Qualified Code(s): I10 - Essential (p rimary) hypertension Disposition: LEFT AGAINST MED ADVICE Is pt being admited?: No Instructions: Chest Pain (ED), Hypertension (ED) Time of Disposition: 15:01
[2020-02-28 14:29] LABS: Basophils % (Auto) 0.4 % (0.0-1.8); Eosinophils # (Auto) 0.2 K/mm3 (0.0-0.4); Hematocrit 41.9 % (35.5-45.6); Hemoglobin 14.7 gm/dl (11.8-15.2); Lymphocytes % (Auto) 37.1 % (13.4-35.0); Mean Corpuscular HGB Conc 35 % (32-34); Mean Corpuscular Volume 95 fl (84-94); Monocytes # (Auto) 0.7 K/mm3 (0.0-0.8); Monocytes % (Auto) 8.1 % (0.0-7.3); Platelet Count 207 K/mm3 (140-440); Red Cell Distribution Width 14.3 % (13.2-15.2)
[2020-02-28 14:46] LABS: BUN/Creatinine Ratio 14; Blood Urea Nitrogen 11 mg/dL (9-20); Calcium 9.7 mg/dL (8.4-10.2); Hemolysis Index 5
[2020-02-28 15:10] LABS: INR 0.95 (0.87-1.13)
== END 2020-02-28 13:30 | disposition left against medical advice (07) ==
LOC: ED 11:51
DX: R07.89 Other chest pain (principal); I10 Essential (primary) hypertension; M19.90 Unspecified osteoarthritis, unspecified site; G40.909 Epilepsy, unspecified, not intractable, without status epilepticus; F32.9 Major depressive disorder, single episode, unspecified; F41.9 Anxiety disorder, unspecified; F17.200 Nicotine dependence, unspecified, uncomplicated; Z90.49 Acquired absence of other specified parts of digestive tract; Z79.899 Other long term (current) drug therapy; Z88.2 Allergy status to sulfonamides
CPT/HCPCS: 36415; 71045; 80048; 84484; 85025; 85610; 93005

== ENCOUNTER 2020-05-11 03:09 | Emergency (ER) | payer MEDICARE ==
[2020-05-11 03:39] VITALS: BP 123/90
[2020-05-11] MEDS ORDERED: levETIRAcetam 1000 MG/NS 0.75% 1,000 MG/100 ML BAG IV ONE (03:55)
[2020-05-11] MEDS ORDERED: KETOROLAC 30 MG/1 ML INJ IV ONE (03:55)
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
[2020-05-12] MEDS ORDERED: ETOMIDATE 20 MG/10 ML INJ IV ONE (13:23)
== END 2020-05-11 04:29 | disposition home or self-care (01) ==
LOC: ED 03:09
DX: R56.9 Unspecified convulsions (principal); I10 Essential (primary) hypertension; M19.91 Primary osteoarthritis, unspecified site; F41.9 Anxiety disorder, unspecified; F32.9 Major depressive disorder, single episode, unspecified; F17.200 Nicotine dependence, unspecified, uncomplicated; F12.10 Cannabis abuse, uncomplicated; Z90.49 Acquired absence of other specified parts of digestive tract; Z79.899 Other long term (current) drug therapy; Z88.2 Allergy status to sulfonamides
CPT/HCPCS: 96374; 96375; 99283; J1885; J1953

== ENCOUNTER 2020-05-31 01:43 | Emergency (ER) | payer MEDICARE ==
[2020-05-31 02:22] VITALS: BP 101/69
[2020-05-31 03:40] LABS: BUN/Creatinine Ratio 18; Blood Urea Nitrogen 16 mg/dL (9-20); Calcium 8.7 mg/dL (8.4-10.2); Hemolysis Index 5
[2020-05-31 04:53] LABS: Hematocrit 42.6 % (35.5-45.6); Hemoglobin 14.8 gm/dl (11.8-15.2); Mean Corpuscular HGB Conc 35 % (32-34); Mean Corpuscular Volume 99 fl (84-94); Red Blood Count 4.33 M/mm3 (3.65-5.03)
[2020-05-31 04:54] LABS: Mean Platelet Volume 8.4 fl (6-12); Platelet Count 335 K/mm3 (140-440); Red Cell Distribution Width 14.2 % (13.2-15.2)
[2020-05-31 05:15] LABS: Total Cells Counted 100
[2020-05-31 05:16] LABS: Platelet Estimate Consistent w Auto
== END 2020-05-31 04:07 | disposition left against medical advice (07) ==
LOC: ED 01:43
DX: R56.9 Unspecified convulsions (principal); Z53.21 Procedure and treatment not carried out due to patient leaving prior to being seen by health care provider
CPT/HCPCS: 36415; 80048; 85007; 85025

== ENCOUNTER 2020-09-10 23:00 | Emergency (ER) | payer MEDICARE | END 2020-09-11 07:18 | LOC: ED 23:00 | DX: R07.9 Chest pain, unspecified (principal); Z53.21 Procedure and treatment not carried out due to patient leaving prior to being seen by health care provider ==

== ENCOUNTER 2021-06-12 03:58 | Emergency (ER) | payer MEDICARE | END 2021-06-12 06:13 | disposition left against medical advice (07) | LOC: ED 03:58 | DX: R07.89 Other chest pain (principal); Z53.21 Procedure and treatment not carried out due to patient leaving prior to being seen by health care provider ==

== ENCOUNTER 2021-07-02 01:08 | Emergency (ER) | payer MEDICARE ==
[2021-07-02 01:11] VITALS: BP 160/100
== END 2021-07-02 03:30 | disposition left against medical advice (07) ==
LOC: ED 01:08
DX: R56.9 Unspecified convulsions (principal); Z53.21 Procedure and treatment not carried out due to patient leaving prior to being seen by health care provider

== ENCOUNTER 2021-07-02 14:36 | Emergency (ER) | payer MEDICARE ==
[2021-07-02 14:38] VITALS: BP 128/80
== END 2021-07-02 16:00 | disposition left against medical advice (07) ==
LOC: ED 14:36
DX: R56.9 Unspecified convulsions (principal); Z53.21 Procedure and treatment not carried out due to patient leaving prior to being seen by health care provider

== ENCOUNTER 2021-07-03 05:02 | Emergency (ER) | payer MEDICARE ==
[2021-07-03 05:08] VITALS: BP 150/90
== END 2021-07-03 07:30 | disposition left against medical advice (07) ==
LOC: ED 05:02
DX: R56.9 Unspecified convulsions (principal); Z53.21 Procedure and treatment not carried out due to patient leaving prior to being seen by health care provider

== ENCOUNTER 2021-11-24 05:22 | Emergency (ER) | payer MEDICAID, MEDICARE ==
[2021-11-24] MEDS ORDERED: KETOROLAC 30 MG/1 ML INJ IV ONE (06:47)
[2021-11-24] MEDS ORDERED: SODIUM CHLORIDE 0.9% 1000 ML 1,000 ML IV ONE (06:47)
[2021-11-24 07:15] LABS: Hematocrit 37.1 % (35.5-45.6); Hemoglobin 12.3 gm/dl (11.8-15.2); Mean Corpuscular HGB Conc 33 % (32-34); Mean Corpuscular Volume 92 fl (84-94); Platelet Count 273 K/mm3 (140-440); Red Blood Count 4.04 M/mm3 (3.65-5.03); Red Cell Distribution Width 14.5 % (13.2-15.2)
[2021-11-24 07:35] LABS: Alanine Aminotransferase 8 units/L (7-56); Albumin 3.6 g/dL (3.9-5); Blood Urea Nitrogen 15 mg/dL (9-20); Calcium 8.9 mg/dL (8.4-10.2); Hemolysis Index 27
[2021-11-24 07:43] LABS: BUN/Creatinine Ratio 21
[2021-11-24 09:07] LABS: Basophils % (Manual) 0 % (0.0-1.8); Myelocytes # (Manual) 0.1 K/mm3; Promyelocytes # (Manual) 0.1 K/mm3; Total Cells Counted 100
[2021-11-24 09:08] LABS: Platelet Estimate Consistent w Auto; RBC Morphology Normal
--- NOTE | 2021-11-24 09:51 | XRay Report ---
LEFT TIBIA-FIBULA 2 VIEW(S) INDICATION / CLINICAL INFORMATION: Lower Extremity Injury COMPARISON: None available. FINDINGS: BONES / JOINT(S): Tibial plateau fracture with overlying plate and screw fixation hardware. Fracture lucency persists and extends to the tibial spines. Partially imaged comminuted distal femoral shaft f racture with intramedullary levi. SOFT TISSUES: Surgical yared at the knee. ADDITIONAL FINDINGS: None. IMPRESSION: 1. Internally fixed tibial plateau fracture with persistent fracture lucency that extends to the tibi al spines. Signer Name: Timothy Marrero MD Signed: 11/24/2021 9:47 AM Workstation Name: [id number]
--- NOTE | 2021-11-24 09:59 | XRay Report ---
LEFT FEMUR 2 VIEW(S) INDICATION / CLINICAL INFORMATION: pain COMPARISON: None available. FINDINGS: BONES / JOINT(S): Comminuted distal femoral shaft fracture with intramedullary levi. External callus f ormation suggests some healing. SOFT TISSUES: No significant abnormality. ADDITIONAL FINDINGS: None. IMPRESSION: 1. Healing femoral shaft fracture with internal fixation hardware Signer Name: Timothy Marrero MD Signed: 11/24/2021 9:55 AM Workstation Name: [employer]
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
[2021-11-24 11:18] LABS: Amphetamine Screen,Urine Negative; Benzodiazepines Screen,Urine Negative; Methadone Screen,Urine Negative; Opiate Screen,Urine Negative
[2021-11-24 11:29] LABS: Cannabinoid Screen,Urine Positive; Cocaine Screen,Urine Positive
[2021-11-24 11:33] LABS: Bacteria,Urine 1+ /HPF (Negative); Mucus,Urine FEW /HPF; RBC,Urine < 1.0 /HPF (0.0-6.0)
[2021-11-24 11:36] LABS: Color,Urine Yellow (Yellow)
[2021-11-24 12:28] VITALS: BP 142/69
--- NOTE | 2021-11-24 12:46 | Vascular Lab Report ---
DUPLEX DOPPLER LOWER EXTREMITY VEINS, LEFT INDICATION / CLINICAL INFORMATION: pain. TECHNIQUE: Duplex doppler imaging was performed through the veins of the left lower extremity using v enous compression and other maneuvers. COMPARISON: None available. FINDINGS: LEFT COMMON FEMORAL VEIN: Negative. LEFT FEMORAL VEIN: Negative. LEFT POPLITEAL VEIN: Negative. LEFT CALF VEINS: Negative. ADDITIONAL FINDINGS: None. IMPRESSION: 1. No sonographic evidence for DVT in the left lower extremity. Signer Name: Timothy Marrero MD Signed: 11/24/2021 12:42 PM Workstation Name: [id number]
== END 2021-11-24 12:27 | disposition home or self-care (01) ==
LOC: ED 05:22
DX: M79.605 Pain in left leg (principal); I10 Essential (primary) hypertension; M19.90 Unspecified osteoarthritis, unspecified site; F32.9 Major depressive disorder, single episode, unspecified; F41.9 Anxiety disorder, unspecified; G89.29 Other chronic pain; F17.200 Nicotine dependence, unspecified, uncomplicated; Z90.49 Acquired absence of other specified parts of digestive tract; Z88.2 Allergy status to sulfonamides; Z79.899 Other long term (current) drug therapy
CPT/HCPCS: 36415; 73552; 73590; 80053; 80307; 81001; 85007; 85025; 86140; 93971; 96361; 96374; 99285; J1885; J7030